=== PATIENT | male | born 1965 | race Caucasian/White ===

== ENCOUNTER 2024-07-15 07:24 | Inpatient (IN) | payer MEDICAID ==
[2024-07-14 10:42] LABS: BASOPHILS # (AUTO) 0.1 X10'3 (0-0.2); BASOPHILS % (AUTO) 1.3 % (0-1); EOSINOPHILS # (AUTO) 0.7 X10'3 (0-0.9); EOSINOPHILS % (AUTO) 8.6 % (0-6); LYMPHOCYTES # (AUTO) 3.4 X10'3 (1.1-4.8); LYMPHOCYTES % (AUTO) 43.4 % (21-51); MEAN CORPUSCULAR HEMOGLOBIN 32.6 PG (27.0-31.0); MEAN CORPUSCULAR HGB CONC 34.6 g/dL (33.0-36.5); MEAN CORPUSCULAR VOLUME 94.5 FL (78-98); MEAN PLATELET VOLUME 6.6 FL (7.4-10.4); MONOCYTES # (AUTO) 1.2 X10'3 (0-0.9); NEUTROPHILS # (AUTO) 2.5 X10'3 (1.8-7.7); NEUTROPHILS % (AUTO) 31.7 % (42-75); PRE OP HEMATOCRIT 42.2 % (42.0-52.0); PRE OP HEMOGLOBIN 14.6 g/dL (14.0-17.9); PRE OP PLATELET COUNT 232 X10'3 (140-440); PRE OP WHITE BLOOD COUNT 7.9 10'3 (4.8-10.8); RED BLOOD COUNT 4.47 X10'6 (4.70-6.10); RED CELL DISTRIBUTION WIDTH 13.5 % (11.5-14.5)
[2024-07-14 10:47] LABS: BILIRUBIN,URINE NEGATIVE (Neg); CLARITY,URINE CLEAR (Clear); COLOR,URINE YELLOW (Yellow); GLUCOSE, URINE NEGATIVE (Neg); KETONES,URINE NEGATIVE (Neg); LEUKOCYTE ESTERASE ,URINE NEGATIVE (Neg); NITRITES, URINE NEGATIVE (Neg); OCCULT BLOOD,URINE TRACE-INTACT (Neg); PROTEIN,URINE NEGATIVE (Neg); UROBILINOGEN,URINE 0.2 E.U/dL (0.2-1.0)
[2024-07-14 10:51] LABS: UA COLLECTION TYPE CLN CATCH MIDSTREAM
[2024-07-14 10:55] LABS: BACTERIA,URINE NONE SEEN /HPF (Neg); RBC,URINE 0-2 /HPF (0-2); SQUAMOUS EPITHELIAL CELL,UR FEW /LPF (FEW); WBC,URINE NONE SEEN /HPF (0-4)
[2024-07-14 10:56] LABS: MUCUS STRANDS NONE SEEN /LPF (Neg)
[2024-07-14 11:01] LABS: PRE OP PROTIME 10.6 SECONDS (9.0-12.0)
[2024-07-14 11:03] LABS: TOTAL CELLS COUNTED 100
[2024-07-14 11:04] LABS: PLATELET ESTIMATE NORMAL
[2024-07-14 11:05] LABS: ALKALINE PHOSPHATASE 91 IU/L (46-116); BLOOD UREA NITROGEN 14 MG/DL (7-18); BUN/CREATININE RATIO 13.6 (10.0-20.0); CALCIUM 9.5 MG/DL (8.5-10.1); CHLORIDE 103 MMOL/L (99-107); CREATININE 1.03 MG/DL (0.60-1.10); PRE OP ALT 47 U/L (30-65); PRE OP ANION GAP 9 (8-16); PRE OP AST 29 U/L (10-37); PRE OP BILIRUB, TOTAL 0.8 MG/DL (0.0-1.0); PRE OP GLUCOSE 107 MG/DL (70-104); PRE OP POTASSIUM 3.7 MMOL/L (3.4-5.1); PRE OP SODIUM 139 MMOL/L (135-145); TOTAL CARBON DIOXIDE 27.2 MMOL/L (24-32); eGFR 74 ML/MIN
[~2024-07-15] VITALS: Ht 170.2 cm; Wt 103.0 kg
[2024-07-15] VITALS (26 sets, daily range): BP systolic 117–154; BP diastolic 50–92; PULSE 66–86; RESP 11–22; TEMP 98.6–99; O2SAT 93–99
[2024-07-15] MEDS: ceFOXitin sod/dextrose 2g/50ml 50 ML IV ONE (05:30)
[~2024-07-15 07:24] MED LIST: ALBU8HFA INH; AMLO10TA PO; ATOR10TA70 PO; FLO0.4C PO; HYDR25TA5 PO; LISI20TA28 PO; METF-436 PO
[2024-07-15] MEDS: famotidine 20mg tablet PO ONE (10:31)
[2024-07-15] MEDS: ringers solution, lacted 1,000 ML IV SCH ×2 (10:33→14:05)
[2024-07-15] MEDS ORDERED: LIDOcaine 1% (10mg/ml) 2ml vial ONE (13:30)
[2024-07-15] MEDS ORDERED: LIDOcaine 1%/PF 5ML 10 MG/ML VIAL ONE (13:35)
[2024-07-15] MEDS ORDERED: BUPIVACAINE liposomal/PF 13.3 MG/ML vial IM ONE ×2 (13:35→13:57)
[2024-07-15] MEDS ORDERED: BUPIVAcaine 2.5mg/ml inj 50ml vial (contains preservative) ONE (13:35)
[2024-07-15] MEDS ORDERED: propofol inj 20 ML IV ONE (13:51)
[2024-07-15] MEDS ORDERED: MIDAZolam 1 MG/ML 5ML VIAL ONE (13:51)
[2024-07-15] MEDS ORDERED: rocuronium 10mg/ml inj IV ONE ×2 (13:51→14:38)
[2024-07-15] MEDS ORDERED: fentaNYL /PF 50mcg/ml 5ml ampule ONE (13:51)
[2024-07-15] MEDS ORDERED: LIDOcaine 2% (20mg/ml) 5ml vial ONE (13:51)
[2024-07-15] MEDS ORDERED: acetaminophen 1,000mg/100ml IV 100 ML IV ONE ×2 (13:53→14:41)
[2024-07-15] MEDS ORDERED: ondansetron/PF 4mg/2ml inj ONE (13:53)
[2024-07-15] MEDS ORDERED: sevoflurane 250ml liquid IH ONE (14:00)
[2024-07-15] MEDS ORDERED: hydrALAZINE 20mg/ml inj. IV PRN (14:05)
[2024-07-15] MEDS ORDERED: morphine 4 MG/ML inj SYRINge IV PRN ×2 (14:05→18:00)
[2024-07-15] MEDS ORDERED: fentaNYL/PF 50MCG/1 ML 2ML syringe IV PRN (14:05)
[2024-07-15] MEDS ORDERED: ondansetron/PF 4mg/2ml inj IV PRN ×2 (14:05→18:00)
[2024-07-15] MEDS ORDERED: labetalol 20mg/4ml (5mg/ml) syringe IV PRN (14:05)
[2024-07-15] MEDS ORDERED: morphine 2 MG/ML inj. syringe IV PRN ×2 (14:05→18:00)
[2024-07-15] MEDS ORDERED: labetalol 20mg/4ml (5mg/ml) syringe IV ONE (14:27)
[2024-07-15] MEDS: BUPIVAcaine 2.5mg/ml inj 50ml vial (contains preservative) SQ ONE (14:53)
[2024-07-15] MEDS ORDERED: hydrALAZINE 20mg/ml inj. ONE (14:59)
[2024-07-15] MEDS: sterile Talc 2 GM powder vial IPL ONE (15:32)
[2024-07-15] MEDS ORDERED: albumin (Human) 5% 250ml 250 ML IV ONE (16:02)
[2024-07-15 16:11] LABS: ABG BASE EXCESS 1.7 mmol/L (-2.0-3.0); ABG HCO3 24.8 mmol/L (21.0-28.0); ABG OXYGEN SATURATION 93.2 % (94.0-98.0); ABG PCO2 (T) 34.5 mmHg (35.0-48.0); ABG PH (T) 7.475 (7.350-7.450); ABG PO2 (T) 61.8 mmHg (83.0-108.0); ALLEN'S TEST POSITIVE; FCOHb 0.3 % (0.5-1.5); FHHb 6.8 % (0.0-5.0); FMetHb 0.3 % (0.0-1.5); FO2Hb 92.6 % (94.0-98.0); MODE ROOM AIR
[2024-07-15] MEDS ORDERED: sugammadex 200mg/2ml injection IV ONE (16:21)
[2024-07-15 17:36] LABS: ABG BASE EXCESS -3.8 mmol/L (-2.0-3.0); ABG HCO3 20.4 mmol/L (21.0-28.0); ABG OXYGEN SATURATION 98.9 % (94.0-98.0); ABG PCO2 (T) 34.3 mmHg (35.0-48.0); ABG PH (T) 7.392 (7.350-7.450); ABG PO2 (T) 185.1 mmHg (83.0-108.0); FCOHb 0.3 % (0.5-1.5); FHHb 1.1 % (0.0-5.0); FLOW 10 L/min; FMetHb 0.3 % (0.0-1.5); FO2Hb 98.3 % (94.0-98.0); MODE Simple Mask; PATIENT TEMPERATURE 36.8; TOTAL HEMOGLOBIN 13.6 G/dl (13.5-17.5)
[2024-07-15] MEDS: fentaNYL/PF 50MCG/1 ML 2ML syringe IV PRN (17:44)
[2024-07-15] MEDS ORDERED: metoclopramide 5 mg/ml inj IV PRN (18:00)
[2024-07-15] MEDS ORDERED: HYDROmorphone inj. 0.5 MG/0.5 ML DISP.SYRIN IV PRN (18:00)
[2024-07-15] MEDS ORDERED: albuterol 2.5 MG/3 ML nebule NEB PRN (18:00)
[2024-07-15] MEDS: ketorolac trometh 15mg/ml vial 15 MG/ML ML IV SCH (20:58)
[2024-07-15] MEDS: gabapentin 300mg capsule PO SCH (21:00)
[2024-07-15] MEDS: potassium Cl 20mEq in D5-NS 1,000 ML IV SCH (21:22)
[2024-07-16] VITALS (14 sets, daily range): BP systolic 127–169; BP diastolic 59–90; PULSE 66–92; RESP 14–20; TEMP 97.9–99.2; O2SAT 94–96
[2024-07-16] MEDS: ceFAZolin inj. 1,000 MG in dextrose 5%-water 50ml 50 ML IV SCH (00:19)
[2024-07-16 07:20] LABS: BASOPHILS % (AUTO) 0.1 % (0-1); EOSINOPHILS % (AUTO) 0 % (0-6); HEMATOCRIT 37.9 % (42.0-52.0); HEMOGLOBIN 13.1 g/dl (14.0-17.9); LYMPHOCYTES # (AUTO) 2.4 X10'3 (1.1-4.8); LYMPHOCYTES % (AUTO) 17.1 % (21-51); MEAN CORPUSCULAR HEMOGLOBIN 32.5 PG (27.0-31.0); MEAN CORPUSCULAR HGB CONC 34.5 g/dL (33.0-36.5); MONOCYTES # (AUTO) 1.3 X10'3 (0-0.9); MONOCYTES % (AUTO) 9.2 % (2-12); NEUTROPHILS # (AUTO) 10.4 X10'3 (1.8-7.7); NEUTROPHILS % (AUTO) 73.6 % (42-75); PLATELET COUNT 242 X10'3 (140-440); RED BLOOD COUNT 4.03 X10'6 (4.70-6.10); RED CELL DISTRIBUTION WIDTH 13.4 % (11.5-14.5); WHITE BLOOD COUNT 14.1 X10'3 (4.5-11.0)
[2024-07-16 07:24] LABS: ANION GAP 11 (8-16); BLOOD UREA NITROGEN 20 MG/DL (7-18); BUN/CREATININE RATIO 17.5 (10.0-20.0); CALCIUM 8.3 MG/DL (8.5-10.1); CHLORIDE 109 MMOL/L (99-107); CREATININE 1.14 MG/DL (0.60-1.10); GLUCOSE 112 MG/DL (70-104); MAGNESIUM 1.9 MG/DL (1.5-2.4); PHOSPHORUS 2.5 MG/DL (2.3-4.5); POTASSIUM 3.3 MMOL/L (3.5-5.1); SODIUM 142 MMOL/L (135-145); TOTAL CARBON DIOXIDE 22.4 MMOL/L (24-32); eCRCL 65 ML/MIN; eGFR 66 ML/MIN
[2024-07-16 07:25] LABS: ALANINE AMINOTRANSFERASE 51 U/L (12-78); ALBUMIN 3.2 G/DL (3.4-5.0); ALBUMIN/GLOBULIN RATIO 0.9 (1.1-1.5); ALKALINE PHOSPHATASE 63 IU/L (46-116); ASPARTATE AMINO TRANSFERASE 30 U/L (10-37); BILIRUBIN,TOTAL 0.8 MG/DL (0.1-1.0); TOTAL PROTEIN 6.6 G/DL (6.4-8.2)
[2024-07-16] MEDS ORDERED: albuterol 2.5 MG/3 ML nebule NEB PRN (15:40)
[2024-07-16] MEDS: metFORMIN 500mg tablet PO SCH (20:47)
[2024-07-16] MEDS: atorvastatin 10mg tablet PO SCH (20:48)
[2024-07-16] MEDS: lisinopril 20mg tablet PO SCH (20:48)
[2024-07-16] MEDS ORDERED: magnesium sulf-water 2g/50mL 50 ML IV PRN (22:50)
[2024-07-16] MEDS ORDERED: magnesium sulf-water 4G/100mL 100 ML IV PRN (22:50)
[2024-07-16] MEDS ORDERED: magnesium Cl slow-release 64mg tablet PO PRN (22:50)
[2024-07-16] MEDS ORDERED: potassium Cl 40MEQ/1/2NS 520ml 520 ML IV PRN (22:50)
[2024-07-16] MEDS: potassium Cl 20 mEq SR tablet PO PRN (23:46)
[2024-07-16] MEDS: HYDROcodone/acetaminophen 10/325mg tab PO PRN (23:46)
[2024-07-17] VITALS (9 sets, daily range): BP systolic 131–152; BP diastolic 64–91; PULSE 71–91; RESP 12–20; TEMP 97.6–99.4; O2SAT 93–98
[2024-07-17] MEDS: potassium Cl 20 mEq SR tablet PO PRN (05:57)
[2024-07-17 07:33] LABS: BASOPHILS # (AUTO) 0.1 X10'3 (0-0.2); BASOPHILS % (AUTO) 0.6 % (0-1); EOSINOPHILS # (AUTO) 0.1 X10'3 (0-0.9); EOSINOPHILS % (AUTO) 0.5 % (0-6); HEMOGLOBIN 13.1 g/dl (14.0-17.9); LYMPHOCYTES # (AUTO) 3.9 X10'3 (1.1-4.8); LYMPHOCYTES % (AUTO) 28.5 % (21-51); MEAN CORPUSCULAR HEMOGLOBIN 32.2 PG (27.0-31.0); MEAN CORPUSCULAR HGB CONC 33.6 g/dL (33.0-36.5); MEAN CORPUSCULAR VOLUME 95.9 FL (78-98); MEAN PLATELET VOLUME 6.8 FL (7.4-10.4); MONOCYTES # (AUTO) 1.7 X10'3 (0-0.9); MONOCYTES % (AUTO) 12.6 % (2-12); NEUTROPHILS # (AUTO) 7.9 X10'3 (1.8-7.7); NEUTROPHILS % (AUTO) 57.8 % (42-75); PLATELET COUNT 251 X10'3 (140-440); RED BLOOD COUNT 4.07 X10'6 (4.70-6.10); RED CELL DISTRIBUTION WIDTH 13.9 % (11.5-14.5); WHITE BLOOD COUNT 13.7 X10'3 (4.5-11.0)
[2024-07-17] MEDS: K and/or MAG REPLACEMENT MC SCH (08:00)
[2024-07-17] MEDS: HYDROchlorothiazide 25mg tablet PO SCH (08:05)
[2024-07-17] MEDS: tamsulosin 0.4mg capsule PO SCH (08:05)
[2024-07-17] MEDS: amLODIPine 5mg tablet PO SCH (08:06)
[2024-07-17 08:18] LABS: ALANINE AMINOTRANSFERASE 45 U/L (12-78); ALBUMIN 3.1 G/DL (3.4-5.0); ALBUMIN/GLOBULIN RATIO 0.9 (1.1-1.5); ALKALINE PHOSPHATASE 63 IU/L (46-116); ANION GAP 10 (8-16); ASPARTATE AMINO TRANSFERASE 24 U/L (10-37); BILIRUBIN,TOTAL 1.2 MG/DL (0.1-1.0); BLOOD UREA NITROGEN 17 MG/DL (7-18); BUN/CREATININE RATIO 18.3 (10.0-20.0); CALCIUM 8.2 MG/DL (8.5-10.1); CHLORIDE 110 MMOL/L (99-107); CREATININE 0.93 MG/DL (0.60-1.10); GLUCOSE 102 MG/DL (70-104); MAGNESIUM 2.2 MG/DL (1.5-2.4); POTASSIUM 4.5 MMOL/L (3.5-5.1); SODIUM 144 MMOL/L (135-145); TOTAL CARBON DIOXIDE 23.8 MMOL/L (24-32); TOTAL PROTEIN 6.5 G/DL (6.4-8.2); eCRCL 80 ML/MIN; eGFR 83 ML/MIN
[2024-07-17] MEDS: HYDROcodone/acetaminophen 10/325mg tab PO PRN (20:14)
[2024-07-18 02:00] VITALS: BP 158/87; PULSE 78; RESP 18; TEMP 97.7; O2SAT 97
[2024-07-18 06:00] VITALS: BP 155/88; PULSE 86; RESP 20; TEMP 98.1; O2SAT 94; O2SAT 95
[2024-07-18 07:00] VITALS: RESP 18; O2SAT 96
[2024-07-18 07:33] LABS: BASOPHILS # (AUTO) 0.1 X10'3 (0-0.2); BASOPHILS % (AUTO) 0.9 % (0-1); EOSINOPHILS # (AUTO) 0.4 X10'3 (0-0.9); EOSINOPHILS % (AUTO) 3.1 % (0-6); HEMATOCRIT 38.8 % (42.0-52.0); HEMOGLOBIN 13.1 g/dl (14.0-17.9); LYMPHOCYTES # (AUTO) 4.5 X10'3 (1.1-4.8); LYMPHOCYTES % (AUTO) 34.6 % (21-51); MEAN CORPUSCULAR HEMOGLOBIN 32.1 PG (27.0-31.0); MEAN CORPUSCULAR HGB CONC 33.8 g/dL (33.0-36.5); MEAN PLATELET VOLUME 6.8 FL (7.4-10.4); MONOCYTES # (AUTO) 1.7 X10'3 (0-0.9); MONOCYTES % (AUTO) 12.7 % (2-12); NEUTROPHILS # (AUTO) 6.4 X10'3 (1.8-7.7); NEUTROPHILS % (AUTO) 48.7 % (42-75); PLATELET COUNT 243 X10'3 (140-440); RED BLOOD COUNT 4.09 X10'6 (4.70-6.10); RED CELL DISTRIBUTION WIDTH 13.5 % (11.5-14.5); WHITE BLOOD COUNT 13.1 X10'3 (4.5-11.0)
[2024-07-18 07:55] LABS: ALANINE AMINOTRANSFERASE 47 U/L (12-78); ALBUMIN 2.9 G/DL (3.4-5.0); ALBUMIN/GLOBULIN RATIO 0.8 (1.1-1.5); ALKALINE PHOSPHATASE 63 IU/L (46-116); ANION GAP 10 (8-16); ASPARTATE AMINO TRANSFERASE 26 U/L (10-37); BILIRUBIN,TOTAL 1.2 MG/DL (0.1-1.0); BLOOD UREA NITROGEN 15 MG/DL (7-18); BUN/CREATININE RATIO 18.8 (10.0-20.0); CALCIUM 8.7 MG/DL (8.5-10.1); CHLORIDE 104 MMOL/L (99-107); GLUCOSE 101 MG/DL (70-104); MAGNESIUM 2.1 MG/DL (1.5-2.4); PHOSPHORUS 3.8 MG/DL (2.3-4.5); POTASSIUM 3.8 MMOL/L (3.5-5.1); SODIUM 138 MMOL/L (135-145); TOTAL CARBON DIOXIDE 24.3 MMOL/L (24-32); TOTAL PROTEIN 6.6 G/DL (6.4-8.2); eCRCL 93 ML/MIN; eGFR > 90 ML/MIN
[2024-07-18 11:00] VITALS: BP 119/63; PULSE 86; RESP 13; TEMP 97.9; O2SAT 96
== END 2024-07-18 14:27 | disposition home health service (06) | DRG 121 ==
LOC: PAS IN 09:39 → PCU 3S 19:10
PROVIDERS: ADMIT Surgery; ATTEND Surgery
PROC: 0BNC4ZZ Release Right Upper Lung Lobe, Percutaneous Endoscopic Approach (ICD-10-PCS; 2024-07-15)
PROC: 0W9930Z Drainage of Right Pleural Cavity with Drainage Device, Percutaneous Approach (ICD-10-PCS; 2024-07-15)
PROC: 8E0W4CZ Robotic Assisted Procedure of Trunk Region, Percutaneous Endoscopic Approach (ICD-10-PCS; 2024-07-15)
PROC: 0BBC4ZZ Excision of Right Upper Lung Lobe, Percutaneous Endoscopic Approach (ICD-10-PCS; principal; 2024-07-15 14:00)
DX: J93.9 Pneumothorax, unspecified (principal); J94.8 Other specified pleural conditions; I10 Essential (primary) hypertension; E66.9 Obesity, unspecified; F17.200 Nicotine dependence, unspecified, uncomplicated; Z68.35 Body mass index [BMI] 35.0-35.9, adult; Z88.2 Allergy status to sulfonamides
CPT/HCPCS: 36415; 36600; 71045; 71046; 71250; 80053; 81001; 82803; 82948; 83735; 84100; 85007; 85018; 85025; 85610; 85730; 86885; 86900; 86901; 87081; 93005; 94010; 94760; 97162; 97530; A4615; A4618; A6213; A6223; A6253; A6258; A6402; A6449; A7000; A7048; C1758; C9250; G0378; J0131; J0360; J0666; J0690; J0694; J1100; J1885; J2003; J2250; J2405; J2704; J3010; J3480; J3490; J7060; J7120; P9045